=== PATIENT | male | born 1960 | race Two or more races ===

== ENCOUNTER 2023-01-18 10:47 | Inpatient (IN) | payer MEDICAID, SELFPAY ==
[2023-01-18] VITALS (8 sets, daily range): BP systolic 138–172; BP diastolic 86–114; PULSE 105–122; RESP 15–24; TEMP 37–37.4; O2SAT 95–96; BMI 28.1; BMI 28.3
--- NOTE | ~2023-01-18 | CT_ITS ---
EXAMINATION: CT ABDOMEN AND PELVIS WITH CONTRAST CLINICAL INFORMATION: Abdominal pain COMPARISON: None available. TECHNIQUE: Multidetector volumetric images were obtained from the superior aspect of the liver through the pubic symphysis following administration 85 mL of Omnipaque 350 intravenous contrast. Sagittal and coronal reformatted images were obtained on the technologist's workstation. Oral contrast: Yes This CT examination was performed using dose optimization techniques as appropriate, variously including the following: *Automated exposure control *Adjustment of mA and/or kV according to patient size (this includes techniques or standardized protocols for targeted exams where dose is matched to indication/reason for exam; i.e. extremities or head) *Use of iterative reconstruction technique DLP: 488 mGy-cm FINDINGS: LUNG BASES: The visualized lung bases are unremarkable. LIVER, GALLBLADDER, AND BILIARY TREE: The liver is normal in size, shape, and attenuation. No focal hepatic lesion or biliary ductal dilatation is present. The gallbladder is unremarkable with no evidence of radiopaque gallstones, gallbladder wall thickening, or obvious pericholecystic inflammatory changes. PANCREAS: Unremarkable. SPLEEN: Unremarkable. ADRENAL GLANDS: Unremarkable. KIDNEYS AND URETERS: Small 1 to 2 mm punctate right renal stones.. Small right renal cyst. No imaging follow-up recommended. Possible tiny cyst exophytic to the upper pole of the left kidney. BLADDER: Not optimally distended. GASTROINTESTINAL TRACT: Diverticulosis of the colon. Focal short segment wall thickening of the distal transverse colon and stranding of the surrounding fat suggestive of diverticulitis or colitis. Small and large bowel is otherwise unremarkable. The appendix is unremarkable. ABDOMINAL WALL: Small left inguinal hernia containing fat. LYMPH NODES: Normal. VASCULAR: Unremarkable. PELVIC VISCERA: Unremarkable. OSSEOUS STRUCTURES: Degenerative changes of the spine. CT/CT abdomen pelvis w IV con IMPRESSION: Diverticulitis or colitis of the distal left colon. Trace ascites in the pelvis. Small nonobstructing right renal stones. Fleischner guidelines were followed.
--- NOTE | ~2023-01-18 | XR_ITS ---
EXAMINATION: XR CHEST CLINICAL INFORMATION: Chest and abdominal pain COMPARISON: None available. TECHNIQUE: 2 views of the chest were obtained. FINDINGS: The cardiac and mediastinal contours are normal. The lungs are clear. No pleural effusion or pneumothorax. No free air. Old right distal clavicle fracture. Degenerative changes of the spine. XR/XR chest 2V IMPRESSION: No evidence for acute disease in the chest.
--- OUTSIDE RECORDS SUMMARY | 2023-01-18 11:41 | XMS_ITS | Continuity of Care Document ---
Author Name Unknown Organization [facility] Address [address] [place] [id number] Care Team Providers Care Pen Maker Name Role Phone Conner Hoang NP Primary Care Physician Encounter [facility] [id number] Date(s): 02/15/21 - 03/17/21 [facility] [address] [place] [id number] Attending Physician: Home Zavala Admitting Physician: AdmHome virk Referring Physician: Admtr ArHakeem Allergies, Adverse Reactions, Alerts No Known Medication Allergies Medications carvedilol 3.125 mg oral tablet 3.125 mg, 1, tablet, By Mouth, 2 times a day, # 180 tablet, Refills 0, Maintenance, 07/09/18 8:49:07 EDT Start Date: 07/09/18 Status: Ordered Genvoya oral tablet 1 tablet, By Mouth, Daily, with food, # 30 tablet, 0 Refills, Maintenance, 07/09/18 8:49:30 EDT, Tablet Start Date: 07/09/18 Status: Ordered Zoloft 50 mg oral tablet 1 tablet = 50 mg, By Mouth, Daily, # 30 tablet, 0 Refills, Maintenance, 07/09/18 8:48:52 EDT, Tablet Start Date: 07/09/18 Status: Ordered Social History Social History Type Response Smoking Status Current every day sm oker; Tobacco user in household: Yes entered on: 07/09/18 Sex
--- OUTSIDE RECORDS SUMMARY | 2023-01-18 11:41 | XMS_ITS | Continuity of Care Document ---
Author Name Unknown Organization [facility] Address [address] [place] [id number]- Care Team Providers Care Template Checker Name Role Phone Conner Hoang NP Primary Care Physician Encounter [facility] [id number] Date(s): 12/21/20 - 03/17/21 [facility] [address] [place] [id number] Attending Physician: Oliver Albrecht MD Admitting Physician: Oliver Albrecht MD Referring Physician: Bebeto Rodriguez MD Allergies, Adverse Reactions, Alerts No Known Medication [...]
[2023-01-18 11:43] LABS: Basophils Absolute Auto 0.1 X10*3/uL (0.0-0.2); Basophils Percent Auto 0.3 % (0-2); Eosinophils Percent Auto 0.2 % (0-4); Hematocrit 42.3 % (42.0-52.0); Hemoglobin 13.9 g/dl (14.0-18.0); Imm Gran Abs Auto 0.19 X10*3/uL (0.00-0.03); Imm Gran Pct Auto 0.8 % (0.0-0.4); Lymphocytes Absolute Auto 2.5 X10*3/uL (1.2-4.9); Lymphocytes Percent Auto 10.9 % (20-40); MANUAL DIFF FLAG SCAN; Mean Corpuscular HGB Conc 32.9 g/dl (31.0-36.0); Mean Corpuscular Hemoglobin 28.5 pg (27.0-33.0); Mean Corpuscular Volume 86.7 fL (80.0-98.0); Mean Platelet Volume 9.5 fL (9.4-12.4); Monocytes Absolute Auto 2.5 X10*3/uL (0.1-1.2); Monocytes Percent Auto 11.1 % (2-11); Neutrophils Absolute Auto 17.2 x10*3/uL (2.0-8.3); Neutrophils Percent Auto 76.7 % (45-73); Platelet Count 331 X10*3/uL (160-400); Red Blood Count 4.88 X10*6/uL (4.60-5.80); Red Cell Distribution Width 12.4 % (11.0-16.0); SCAN SMEAR FLAG 1; White Blood Count 22.5 X10*3/uL (4.8-10.8)
--- NOTE | 2023-01-18 11:50 | ECG_ITS ---
Test Reason : abdominal pain Blood Pressure : / mmHG Vent. Rate : 105 BPM Atrial Rate : 105 BPM P-R Int : 148 ms QRS Dur : 080 ms QT Int : 330 ms P-R-T Axes : 064 -56 026 degrees QTc Int : 436 ms Sinus tachycardia Left anterior fascicular block Abnormal ECG No previous ECGs available Referred By: Henok Rosen Electronically Signed By:BETI WILKERSON
--- NOTE | 2023-01-18 11:53 | ED.ABDPAIN ---
HPI - Abdominal Pain General Chief Complaint: Abdominal Pain Stated Complaint: abd pain Time Seen by Provider: 01/18/23 11:07 Source: patient Mode of arrival: ambulatory Limitations: language barrier (Polish speaking only, healthcare facility administrator used) History of Present Illness HPI narrative: 62-year-old male who presents emergency department for evaluation of abdominal pain x3 weeks. The pain is gotten worse over the past 4 days, he has not been able to eat or drink over the past 24 hours secondary to his pain. The patient states he has had constant abdominal pain which waxes and wanes in intensity. He states the pain is as high as 10/10 at its worst. At the time of evaluation the pain was 5/10. He states that the pain is a twisting like pain any points to his epigastric area and left abdomen when asked to localize the pain. He states that he has had subjective fever and chills which started last night. He states he has had sore throat, cough productive of white sputum, shortness of breath and dyspnea on exertion. Patient has had intermittent nausea with vomiting this morning. He states his last bowel movement was this morning. He does feel distended. He has noted occasional black stools. He denied bloody stools. He has had frequency and dysuria. Patient had an umbilical hernia repair 10 years prior. Patient states that he drinks alcohol occasionally and smokes marijuana occasionally. Related Data Allergies Allergy/AdvReac Type Severity Reaction Status Date / Time No Known Allergies Allergy Verified 01/18/23 11:49 Review of Systems Review of Systems Yes all other systems are reviewed and are negative [facility] Past Medical History [facility] Narrative: Past medical history: Hypertension, asthma, depression, arthritis. Past surgical history: Umbilical hernia repair 10 years prior. Social history: He denies tobacco use. He drinks alcohol occasionally. He smokes marijuana occasionally. Social History Social History Alcohol intake: current Alcohol intake frequency: holidays/special occasions only Smoked in Last 30 Days: No Use of substances other than those prescribed or required for medical reasons: Yes Substance Use Type: Marijuana Advance Directives: No Physical Exam ED Vital Signs: Vital Signs - 24 hr 01/18/23 10:58 01/18/23 11:10 01/18/23 14:19 Temperature 99.1 F Pulse Rate 120 H 122 H 105 H Respiratory Rate 16 24 H Blood Pressure 153/114 H 138/86 Pulse Oximetry 96 96 Oxygen Delivery Method Room Air Room Air 01/18/23 14:29 Temperature Pulse Rate Respiratory Rate 18 Blood Pressure Pulse Oximetry Oxygen Delivery Method BMI result Body Mass Index 28.1 Const Other: Awake, alert, male patient, pleasant, cooperative does not appear to be in distress [facility] Head: Yes normal to inspection, Yes normocephalic and Yes atraumatic Ears: external ears normal General nose exam: Normal external nose present Face and sinus: Yes normal facial exam Mouth: Normal oral and palatal mucosa present Throat: Yes posterior oropharynx normal Eyes General: appearance normal, both eyes and all related structures Pupils: Equal, round and reactive pupils present Neck Neck: Yes normal visual inspection, Yes no lymphadenopathy, Yes trachea midline and Yes supple Chest Chest palpation & inspection: normal inspection of the chest and normal palpation of entire chest wall Resp Effort & Inspection: normal respiratory effort and able to speak in complete sentences Auscultation: clear to auscultation bilaterally Cardio Rate: regular rate Rhythm: regular rhythm Heart sounds: S1 normal heart sound present, S2 normal heart sound present and no murmurs GI Inspection: Yes normal to inspection Palpation (GI): Soft to palpation, Tenderness to palpation present (GI) in the epigastrum (Moderate), in the LLQ (Moderate) and in the LUQ (My) and no guarding Auscultation: normal bowel sounds General: Yes no CVA tenderness Back/Spine/Pelvis Back: no CVA tenderness Skin General skin exam: no rashes or lesions noted Neuro Cranial nerves: Yes CN's II-XII intact bilaterally and Yes Equal, round and reactive pupils present Cognition (Neuro): normal cognition Motor exam (neuro): 5/5 motor strength present throughout Extrem General: Yes normal to inspection Psych Appearance: grossly normal Speech and movement: Normal speech and movement present Affect: normal affect Attitude: cooperative Thought process: Normal thought process present Thought content: Normal thought content present Medical Decision Making Medical Decision Making MDM Narrative: 8o-year-old male who presents emergency department for evaluation of abdominal pain x3 weeks with pain getting worse over the past 4 days. Patient has not been able to eat or drink for the past 24 hours secondary to his pain.. He states the pain is been constant but waxes and wanes in intensity. He describes the pain is a twisting sensation. He points to his epigastric and left side of his abdomen when asked to localize the pain. States the pain is a twisting pain does feel distended. Patient had a normal bowel movement this morning but states that he has noted black stools. He denied bloody stools. He has also had subjective fever, chills. He has had a cough productive of white sputum. He has had shortness of breath dyspnea on exertion, nausea vomiting. He has also had frequency and dysuria. Vital signs revealed an elevated blood pressure of 153/114 elevated pulse of 120. Patient's abdominal exam did reveal epigastric and left-sided abdominal tenderness. I ordered a laboratory evaluation to include CBC, basic metabolic panel, liver panel, lipase, urinalysis. Chest x-ray x2, CT scan abdomen pelvis with IV contrast and EKG will also be obtained. Patient's pain was treated with Toradol 15 mg IV and Zofran 4 mg IV. Is also ordered to get normal saline IV x1 L. 1417: My interpretation patient's laboratory data as follows: Elevated WBC 7[address]. CT scan of the patient's abdomen pelvis IV contrast is consistent with a diverticulitis/colitis of the distal left colon. Patient's pain did improve with the above treatment however he requested more pain medications. I ordered Zosyn 4.5 g IV to treat his diverticulitis/colitis. Patient was also ordered to get morphine 4 mg IV for his pain and a 2 L of normal saline IV was ordered. Given the fact that he is not able to eat or drink as having significant pain, I believe that the patient needs to be admitted for IV antibiotics and pain medications until improves enough to be started on oral medications. Patient was discussed over tiger text with the covering hospitalist, Dr. Dylan Dominguez. Differential Diagnosis The differential diagnosis includes was not limited to gastritis, diverticulitis, GI bleed, inflammatory bowel disease, partial bowel obstruction, pancreatitis, urinary tract infection, renal stone Consult Healthcare Provider Management of the patient was discussed with: Hospitalist Lab Data [facility] Lab Attestation statement: I reviewed the patient's lab results. (Please see MDM) 01/18/23 11:37 01/18/23 11:37 Labs: Lab Results 01/18/23 01/18/23 01/18/23 Range/Units 11:37 11:37 14:22 WBC 22.5 H (4.8-10.8) X10*3/uL RBC 4.88 (4.60-5.80) X10*6/uL Hgb 13.9 L (14.0-18.0) g/dl Hct 42.3 (42.0-52.0) % MCV 86.7 (80.0-98.0) fL MCH 28.5 (27.0-33.0) pg MCHC 32.9 (31.0-36.0) g/dl RDW 12.4 (11.0-16.0) % Plt Count 331 (160-400) X10*3/uL MPV 9.5 (9.4-12.4) fL Immature Gran % (Auto) 0.8 H (0.0-0.4) % Neut % (Auto) 76.7 H (45-73) % Lymph % (Auto) 10.9 L (20-40) % [place] % (Auto) 11.1 H (2-11) % Eos % (Auto) 0.2 (0-4) % Baso % (Auto) 0.3 (0-2) % Lymph # (Auto) 2.5 (1.2-4.9) X10*3/uL [place] # (Auto) 2.5 H (0.1-1.2) X10*3/uL Eos # (Auto) 0.0 (0.0-0.4) X10*3/uL Baso # (Auto) 0.1 (0.0-0.2) X10*3/uL Abs Immat Gran (auto) 0.19 H (0.00-0.03) X10*3/uL Absolute Neuts (auto) 17.2 H (2.0-8.3) x10*3/uL Absolute Nucleated RBC 0.000 (0.0-0.012) X10*3/uL Nucleated RBC % (auto) 0.0 (0.0-0.2) /100WBC Smear Tech's Comments VERIFIED Sodium 139 (135-145) mmol/L Potassium 4.3 (3.3-5.1) mmol/L Chloride 106 (96-108) mmol/L Carbon Dioxide 25 (22-29) mmol/L Anion Gap 12 (12-20) BUN 8 L (9-16) mg/dL Creatinine 0.96 (0.5-1.4) mg/dL Estim Creat Clear Calc 83.7 Estimated GFR > 60 Random Glucose 102 (60-115) mg/dL Calcium 9.2 (8.4-10.2) mg/dL Total Bilirubin 0.9 (0.0-1.0) mg/dL Direct Bilirubin 0.3 (0.0-0.5) mg/dL AST 26 (5-37) U/L ALT 17 (0-40) U/L Alkaline Phosphatase 90 (39-117) U/L Total Protein 8.1 H (6.5-8.0) g/dL Albumin 4.2 (3.5-5.0) g/dL Lipase 10 (8-78) U/L Urine Color Yellow Urine Appearance Clear Urine pH 8.5 (5.0-9.0) Ur Specific [place] >= 1.030 H (1.005-1.025) Urine Protein 30 (1+) H (Neg-Trace) mg/dL Urine Glucose (UA) Negative (Negative) mg/dL Urine Ketones Negative (Negative) mg/dL Urine Blood Negative (Negative) Urine Nitrite Negative (Negative) Ur Leukocyte Esterase Negative (Negative) Urine RBC 0-2 (0-2) /HPF Urine WBC 0-5 (0-5) /HPF Ur Squamous Epith Cells 0-2 (0-2) /HPF Urine Bacteria None Seen (None Seen) Hyaline Casts 0-2 (0-2) /LPF Radiology Impression Discussion of test interpretation with radiology: I have reviewed the radiologist's reading. Radiologist Impression: EXAMINATION: CT ABDOMEN AND PELVIS WITH CONTRAST CLINICAL INFORMATION: Abdominal pain COMPARISON: None available. FINDINGS: LUNG BASES: The visualized lung bases are unremarkable. LIVER, GALLBLADDER, AND BILIARY TREE: The liver is normal in size, shape, and attenuation. No focal hepatic lesion or biliary ductal dilatation is present. The gallbladder is unremarkable with no evidence of radiopaque gallstones, gallbladder wall thickening, or obvious pericholecystic inflammatory changes. PANCREAS: Unremarkable. SPLEEN: Unremarkable. ADRENAL GLANDS: Unremarkable. KIDNEYS AND URETERS: Small 1 to 2 mm punctate right renal stones.. Small right renal cyst. No imaging follow-up recommended. Possible tiny cyst exophytic to the upper pole of the left kidney. BLADDER: Not optimally distended. GASTROINTESTINAL TRACT: Diverticulosis of the colon. Focal short segment wall thickening of the distal transverse colon and stranding of the surrounding fat suggestive of diverticulitis or colitis. Small and large bowel is otherwise unremarkable. The appendix is unremarkable. ABDOMINAL WALL: Small left inguinal hernia containing fat. LYMPH NODES: Normal. VASCULAR: Unremarkable. PELVIC VISCERA: Unremarkable. OSSEOUS STRUCTURES: Degenerative changes of the spine. CT/CT abdomen pelvis w IV con IMPRESSION: Diverticulitis or colitis of the distal left colon. Trace ascites in the pelvis. Small nonobstructing right renal stones. Fleischner guidelines were followed. Dictated By:Latoya Gonzalez MDSigned By:<Electronically signed by Latoya Gonzalez MD in [place]>01/18/23 1343 Medications Administered Generic Name Dose Route Start Last Admin Trade Name Freq PRN Reason Stop Dose Admin Sodium Chloride 1,000 mls @ 999 mls/hr 01/18/23 14:11 01/18/23 14:27 Ns IV 01/18/23 15:11 999 mls/hr .Q1H1M STA Administration Discontinued Medications Generic Name Dose Route Start Last Admin Trade Name Freq PRN Reason Stop Dose Admin Sodium Chloride 1,000 mls @ 999 mls/hr 01/18/23 12:11 01/18/23 14:33 Ns IV 01/18/23 13:11 Infused .Q1H1M STA Infusion Piperacillin Sod/Tazobactam 100 mls @ 200 mls/hr 01/18/23 14:11 01/18/23 14:30 Sod 4.5 gm/ Sodium Chloride IV 01/18/23 14:40 200 mls/hr ONCE ONE Administration Iohexol 85 ml 01/18/23 12:39 01/18/23 12:40 Iohexol 350 Mg/Ml 100 Ml Infus..Btl IV 01/18/23 12:40 85 ml ONCE ONE Administration Ketorolac Tromethamine 15 mg 01/18/23 11:49 01/18/23 12:00 Ketorolac Tromethamine 15 Mg/Ml Vial IVPUSH 01/18/23 11:50 15 mg ONCE STA Administration Morphine Sulfate 4 mg 01/18/23 14:11 01/18/23 14:29 Morphine Sulfate 4 Mg/Ml Cartridge IVPUSH 01/18/23 14:12 4 mg ONCE ONE Administration Protocol Ondansetron HCl 4 mg 01/18/23 11:49 01/18/23 12:00 Ondansetron Hcl 4 Mg/2 Ml Vial IVPUSH 01/18/23 11:50 4 mg ONCE ONE Administration Discharge Plan Discharge Clinical Impression: Diverticulitis, Colitis, Leukocytosis Patient Disposition: Admitted As Inpatient
[2023-01-18] MEDS: Ketorolac Tromethamine 15 MG/ML VIAL IVPUSH (12:00)
[2023-01-18] MEDS: ondansetron HCL 4 MG/2 ML VIAL IVPUSH (12:00)
[2023-01-18 12:01] LABS: Alanine Aminotransferase 17 U/L (0-40); Albumin Level 4.2 g/dL (3.5-5.0); Alkaline Phosphatase 90 U/L (39-117); Anion Gap 12 (12-20); Aspartate Amino Transferase 26 U/L (5-37); Bilirubin Direct 0.3 mg/dL (0.0-0.5); Bilirubin Total 0.9 mg/dL (0.0-1.0); Blood Urea Nitrogen 8 mg/dL (9-16); Calcium 9.2 mg/dL (8.4-10.2); Carbon Dioxide 25 mmol/L (22-29); Chloride 106 mmol/L (96-108); Creatinine Clr Calc Pharmacy 83.7; Estimated Glomerular Filt Rate > 60; Glucose Random 102 mg/dL (60-115); Lipase 10 U/L (8-78); Potassium 4.3 mmol/L (3.3-5.1); Sodium 139 mmol/L (135-145); Total Protein 8.1 g/dL (6.5-8.0)
[2023-01-18 12:08] LABS: SLIDE REVIEW VERIFIED
--- NOTE | 2023-01-18 12:08 | PC.NURSE ---
Pt on stretcher, airway open and patent, no obvious signs of distress, no difficulty breathing. A&ox4, skin slightly pale for ethnicity, warm, and dry. Lung sounds clr left, rhonchi noted on right side. Heart sounds normal. Bowel sounds present all botello. No edema noted. Pt complaining of abd pain on left side that goes across lower abdomen to right side and upper middle.
[2023-01-18] MEDS: 0.9 % Sodium Chloride 1,000 ML 999 ML IV ×2 (12:17→14:27)
[2023-01-18] MEDS: iohexoL 350 MG/ML 100 ML INFUS..BTL 85 ML IV (12:40)
[2023-01-18 14:28] LABS: Appearance Urine Clear; Color Urine Yellow; Glucose Urine UA Negative (Negative); Leukocyte Esterase Urine Negative (Negative); Nitrite Urine Negative (Negative); PH 8.5 (5.0-9.0); Specific Gravity - Urine >= 1.030 (1.005-1.025); UMIC TRIGGER UACC YES; Urine Blood Negative (Negative); Urine Ketones Negative (Negative); Urine Protein 30 (1+) mg/dL (Neg-Trace)
[2023-01-18] MEDS: Morphine Sulfate 4 MG/ML CARTRIDGE IVPUSH (14:29)
[2023-01-18] MEDS: Piperacillin Sodium/Tazobactam 4.5 GM in 0.9 % Sodium Chloride 100 ML IV (14:30)
--- NOTE | 2023-01-18 14:32 | PC.NURSE ---
Pt resting comfortably, stating abdominal pain 5/10. Heart rate improved, 103 bpm.
[2023-01-18 14:33] LABS: Bacteria Urine None Seen (None Seen); Hyaline Casts Urine 0-2 /LPF (0-2); RBC Urine 0-2 /HPF (0-2); Squamous Epithelial Cell Urine 0-2 /HPF (0-2); WBC Urine 0-5 /HPF (0-5)
--- NOTE | 2023-01-18 15:49 | P.HPHOSP_ITS ---
History of Present Illness Date of Service: 01/18/23 Chief Complaint: Abdominal pain Pt is a 62-year-old male with a PMH significant for?HTN, arthritis, asthma, HIV, and depression who presents to the ED with?three weeks of abdominal pain, worse the past few days. Pain is mostly on the left side and has been mostly constant. Pt has also been experiencing fever, chills, and anorexia during this time, worse since yesterday. Denies nausea, vomiting, or diarrhea. No constipation. Last bowel movement was this morning, was slightly softer than normal. Pt has not seen anyone or taken anything for his symptoms, and notes he has resisted coming to the ED because he does not want to miss work. He presents today because pain was unbearable last night. Pain has been a 10/10 at its worst. Chronic cough, occasionally productive of white sputum. Of note, patient says that approximately 1 year he had similar symptoms and was given antibiotics for an abdominal infection. In the ED patient was afebrile but tachycardic up to 122 and tachypneic up to 24. Labs were significant for leukocytosis of 22.5, otherwise unremarkable. CXR showed no cardiopulmonary disease. CT?of the abdomen and pelvis showed diverticulitis or colitis of the distal left colon with trace ascites in the pelvis and small nonobstructing right renal stones. EKG demonstrated sinus tachycardia with no evidence of ST elevations or depressions. Pt was treated with a ondansetron, ketorolac, IVF, morphine, and Zosyn. Pt will be admitted to the hospital for treatment of acute diverticulitis with IV antibiotics and fluids. Review of Systems Review of Systems: Left-sided abdominal pain Fever, chills Anorexia Chronic cough No nausea, vomiting, diarrhea Denies chest pain/pressure, palpitations Yes all other systems are reviewed and are negative PMFSH Social History Alcohol intake: current Alcohol intake frequency: holidays/special occasions only Smoked in Last 30 Days: No Use of substances other than those prescribed or required for medical reasons: Yes Substance Use Type: Marijuana Advance Directives: No Meds Allergies Allergy/AdvReac Type Severity Reaction Status Date / Time No Known Allergies Allergy Verified 01/18/23 11:49 Active Medications: Current Medications Pharmacy Consult (Consult Rx Perform Med Rec) 1 each MISCELLANE ONCE PRN PRN Reason: Consult order Home Medications Medication Instructions Recorded Confirmed Last Taken Type albuterol sulfate 90 mcg/actuation 2 puff inhalation Q4H PRN wheezing 01/18/23 01/18/23 01/17/23 History aerosol inhaler (Ventolin HFA) atorvastatin 20 mg tablet 20 mg PO DAILY 01/18/23 01/18/23 01/17/23 History bictegravir 50 mg-emtricitabine 1 tab PO DAILY 01/18/23 01/18/23 01/17/23 History 200 mg-tenofovir alafenam 25 mg tablet (Biktarvy) carvedilol 3.125 mg tablet 3.125 mg PO BID 01/18/23 01/18/23 01/17/23 History umeclidinium 62.5 mcg/actuation 1 inh inhalation DAILY 01/18/23 01/18/23 01/17/23 History blister powder for inhalation (Incruse Ellipta) Physical Exam Vital Signs and Narrative: Vital Signs: Last Vital Signs Temp 99.1 F 01/18/23 10:58 Pulse 105 H 01/18/23 14:19 Resp 18 01/18/23 14:29 BP 138/86 01/18/23 14:19 Pulse Ox 96 01/18/23 14:19 O2 Del Method Room Air 01/18/23 14:19 BMI result Body Mass Index 28.1 Constitutional: Alert, in no acute distress. Mental Status: Oriented to person, place and time. Eyes: Pupils are equal, round, and reactive to light. Ear, Nose, and Throat: Oropharynx clear, mucous membranes moist. Ears and nose without deformities. Trachea midline. Respiratory: Expiratory wheezing bilaterally. Cardiovascular: S1, S2 regular. No murmurs, rubs, or gallops. Gastrointestinal: Abdomen soft, non-distended, with epigastric and left-sided tenderness. No rebound tenderness or guarding. Normal bowel sounds. Neurologic: Cranial nerves II-XII are grossly intact bilaterally. No focal neurological deficits. Moves all extremities spontaneously. Skin: No rashes or lesions noted. Extremities: No edema. Psychiatric: Normal mood and affect. Results Labs 01/18/23 11:37 01/18/23 11:37 Labs: Laboratory Results - last 24 hr 01/18/23 01/18/23 01/18/23 11:37 11:37 14:22 MCV 86.7 MCH 28.5 MCHC 32.9 RDW 12.4 Plt Count 331 MPV 9.5 Immature Gran % (Auto) 0.8 H Neut % (Auto) 76.7 H Lymph % (Auto) 10.9 L [place] % (Auto) 11.1 H Eos % (Auto) 0.2 Baso % (Auto) 0.3 Lymph # (Auto) 2.5 [place] # (Auto) 2.5 H Eos # (Auto) 0.0 Baso # (Auto) 0.1 Abs Immat Gran (auto) 0.19 H Absolute Neuts (auto) 17.2 H Absolute Nucleated RBC 0.000 Nucleated RBC % (auto) 0.0 Smear Tech's Comments VERIFIED Anion Gap 12 Estim Creat Clear Calc 83.7 Estimated GFR > 60 Random Glucose 102 Calcium 9.2 Total Bilirubin 0.9 Direct Bilirubin 0.3 AST 26 ALT 17 Alkaline Phosphatase 90 Total Protein 8.1 H Albumin 4.2 Lipase 10 Urine Color Yellow Urine Appearance Clear Urine pH 8.5 Ur Specific [place] >= 1.030 H Urine Protein 30 (1+) H Urine Glucose (UA) Negative Urine Ketones Negative Urine Blood Negative Urine Nitrite Negative Ur Leukocyte Esterase Negative Urine RBC 0-2 Urine WBC 0-5 Ur Squamous Epith Cells 0-2 Urine Bacteria None Seen Hyaline Casts 0-2 Imaging Radiologist's Impressions: Impressions Chest X-Ray 01/18/23 12:50 IMPRESSION: No evidence for acute disease in the chest. Abdomen/Pelvis CT 01/18/23 12:52 IMPRESSION: Diverticulitis or colitis of the distal left colon. Trace ascites in the pelvis. Small nonobstructing right renal stones. Fleischner guidelines were followed. Assessment and Plan (1) Diverticulitis: Status: Acute Plan Pt is a 62-year-old male with a PMH significant for?HTN, arthritis, asthma, HIV, and depression who presents to the ED with?three weeks of abdominal pain, worse the past few days. Pt will be admitted to the hospital for treatment of acute diverticulitis with IV antibiotics and fluids. Acute diverticulitis CT?of the abdomen and pelvis showed diverticulitis or colitis of the distal left colon? IV abx: ceftriaxone, metronidazole IVF: Normal saline Analgesics for pain management Bowel rest: pt will be made NPO for now, advance diet tomorrow as tolerated Follow BMP Pt's tachycardia and tachypnia likely secondary to pain, not sepsis Asthma Pt with wheezing on exam, improved after albuterol Does not seem in acute exacerbation Continue home inhalers HTN Continue carvedilol HLD Continue statin HIV Continue Biktarvy Full Code Attending:?Dr. Guzman DVT Prophylaxis: Lovenox Pt will require a hospitalization of at least two nights for treatment of?acute diverticulitis with IV abx and fluids. Time Spent With Patient Time: Total time managing care of this patient today ____ minutes. Quality Stroke Does the patient have a stroke diagnosis?: No VTE Prior VTE?: No VTE Risk Level:: Medical - moderate - high VTE Device Contraindication: Treatment Not Indicated VTE Drug Contraindication: N/A - Med Ordered
--- NOTE | 2023-01-18 17:37 | PHA.MEDREC ---
Pharmacy Consult ? Medication Reconciliation Pharmacy has completed the medication reconciliation. Spoke to pt with assistance of process developer. He didn't know the names of the medications he's on but when I read him the names from claim history he was able to verify that he still takes them.
[2023-01-18] MEDS: Enoxaparin Sodium 40 MG/0.4 ML SYRINGE SUBCUT (17:54)
[2023-01-18] MEDS: metroNIDAZOLE 500 MG TABLET PO (17:54)
[2023-01-18] MEDS: cefTRIAXone sodium 1 GM in 0.9 % Sodium Chloride 50 ML IV (17:55)
[2023-01-18] MEDS: 0.9 % Sodium Chloride 1,000 ML 100 ML IVCONT (18:00)
--- NOTE | 2023-01-18 18:09 | PC.NURSE ---
Pt complaining of worsening abdominal pain rated 5/10 that started up again a few minutes ago.
[2023-01-18] MEDS: carvediloL 3.125 MG TABLET PO (20:40)
[2023-01-19] MEDS: metroNIDAZOLE 500 MG TABLET PO ×3 (00:05→17:22)
[2023-01-19 04:00] VITALS: BP 163/99; PULSE 92; RESP 18; TEMP 37.1; O2SAT 97
[2023-01-19] MEDS: 0.9 % Sodium Chloride 1,000 ML 100 ML IVCONT (05:29)
--- NOTE | 2023-01-19 05:39 | PC.NURSE ---
Pt came from the ED at 2100, alert and oriented, spanish medical interpreter called in, still with mild left sided abdl pain, oriented to the unit and plan of care, safety measures instructed, NPO maintianed, slept fairly
[2023-01-19 07:07] LABS: Hematocrit 38.2 % (42.0-52.0); Hemoglobin 12.4 g/dl (14.0-18.0); Mean Corpuscular HGB Conc 32.5 g/dl (31.0-36.0); Mean Corpuscular Hemoglobin 28.3 pg (27.0-33.0); Mean Corpuscular Volume 87.2 fL (80.0-98.0); Mean Platelet Volume 9.4 fL (9.4-12.4); Platelet Count 289 X10*3/uL (160-400); Red Blood Count 4.38 X10*6/uL (4.60-5.80); Red Cell Distribution Width 12.3 % (11.0-16.0); White Blood Count 15.9 X10*3/uL (4.8-10.8)
[2023-01-19 07:15] VITALS: BP 170/90; PULSE 89; RESP 16; TEMP 35.9; O2SAT 97
[2023-01-19 07:55] LABS: Anion Gap 12 (12-20); Blood Urea Nitrogen 7 mg/dL (9-16); Calcium 8.3 mg/dL (8.4-10.2); Carbon Dioxide 25 mmol/L (22-29); Chloride 107 mmol/L (96-108); Creatinine Clr Calc Pharmacy 95.8; Estimated Glomerular Filt Rate > 60; Glucose Random 84 mg/dL (60-115); Potassium 4.6 mmol/L (3.3-5.1); Sodium 139 mmol/L (135-145)
[2023-01-19] MEDS: carvediloL 3.125 MG TABLET 6.25 MG PO ×2 (08:48→19:31)
[2023-01-19] MEDS: Atorvastatin Calcium 20 MG TABLET PO (08:48)
[2023-01-19] MEDS: Bictegrav/Emtricit/Tenofov Ala TABLET 1 TAB PO (08:48)
[2023-01-19 11:12] LABS: Glucose, Whole Blood 80 mg/dL (60-115)
--- NOTE | 2023-01-19 11:14 | MHC.CM.PN ---
Pt independent, SSO, was admitted for abdominal pain/acute diverticulitis. D/C plan to return home, self care when medically cleared. Pts son to transport. HCP offered and filled out today. PCP: NAVI Hernandez Vax: x [phone]
--- NOTE | 2023-01-19 14:41 | HO.PM.IMPN ---
Subjective Subjective Date of Service: 01/19/23 Interval History: Abdominal pain Review of Systems Patient says abdominal pain somewhat better than yesterday still feel nauseated still could not tolerate the diet Encouraged him to at least try clear liquids today No fevers Says in tachycardia somewhat improving Physical Exam Vital Signs: Vital Signs: Last Vital Signs Temp 96.6 F L 01/19/23 07:15 Pulse 89 01/19/23 07:15 Resp 16 01/19/23 07:15 BP 170/90 H 01/19/23 07:15 Pulse Ox 97 01/19/23 07:15 O2 Del Method Room Air 01/19/23 07:15 BMI result Body Mass Index 28.3 Appearance: Alert.? Oriented X3. cvs: rrr, [id number] , no murmur res: clear to auscultation ,no rhonchii or wheezing abd: no rebound or guarding ,nt improvi, left sided abd tenderness , bs present. ext pulses present , no cyanosis . neuro: axo3 , nonfocal. Objective Data Active Medications Acetaminophen (Acetaminophen 325 Mg Tablet) 650 mg PO Q6H PRN PRN Reason: Pain, Mild (Pain Scale 1-3) Albuterol Sulfate (Albuterol Sulfate 90 Mcg 8 Gm Inhaler) 2 puff INHALE Q4H PRN PRN Reason: wheezing Atorvastatin Calcium (Atorvastatin Calcium 20 Mg Tablet) 20 mg PO DAILY [facility] Last Admin: 01/19/23 08:48 Dose: 20 mg Documented By: EVELINE Bictegravir/Emtricitabine/Tenofovir (Bictegrav/Emtricit/Tenofov Ala Tablet) 1 tab PO DAILY [facility] Last Admin: 01/19/23 08:48 Dose: 1 tab Documented By: EVELINE Carvedilol (Carvedilol 3.125 Mg Tablet) 6.25 mg PO BID [facility]; Protocol Last Admin: 01/19/23 08:48 Dose: 6.25 mg Documented By: EVELINE Docusate Sodium (Docusate Sodium 100 Mg Capsule) 100 mg PO DAILY PRN PRN Reason: Constipation Enoxaparin Sodium (Enoxaparin Sodium 40 Mg/0.4 Ml Syringe) 40 mg SUBCUT Q24H [facility] Last Admin: 01/18/23 17:54 Dose: 40 mg Documented By: SHELBIE Ceftriaxone Sodium 1 gm/ (Sodium Chloride) 50 mls @ 100 mls/hr IV Q24H [facility] Last Infusion: 01/18/23 20:56 Dose: 0 mls/hr Documented By: KHADRA Metronidazole (Metronidazole 500 Mg Tablet) 500 mg PO Q8H [facility] Last Admin: 01/19/23 08:48 Dose: 500 mg Documented By: EVELINE Morphine Sulfate (Morphine Sulfate 4 Mg/Ml Cartridge) 4 mg IVPUSH Q4H PRN; Protocol PRN Reason: Pain, Severe (Pain Scale 7-10) Non-Formulary Medication (Umeclidinium [Incruse Ellipta]) 1 inhalation INHALE DAILY [facility] Ondansetron HCl (Ondansetron Hcl 4 Mg/2 Ml Vial) 4 mg IVPUSH Q8H PRN PRN Reason: Nausea and Vomiting Pharmacy Consult (Consult Rx Perform Med Rec) 1 each MISCELLANE ONCE PRN PRN Reason: Consult order Sodium Chloride (0.9 % Sodium Chloride Flush 3 Ml Syringe) 3 ml IVFLUSH QSHIFT [facility] Last Admin: 01/19/23 08:42 Dose: Not Given Documented By: EVELINE Non-Admin Reason: IV Running Labs 01/19/23 06:33 01/19/23 06:33 Labs: Laboratory Results - last 24 hr 01/19/23 01/19/23 01/19/23 06:33 06:33 11:04 MCV 87.2 MCH 28.3 MCHC 32.5 RDW 12.3 Plt Count 289 MPV 9.4 Absolute Nucleated RBC 0.000 Nucleated RBC % (auto) 0.0 Anion Gap 12 Estim Creat Clear Calc 95.8 Estimated GFR > 60 POC Glucose 80 Random Glucose 84 Calcium 8.3 L D Microbiology Microbiology Results: Microbiology 01/18/23 12:23 Blood Culture - Preliminary Blood - Venous No growth after 24 hours. 01/18/23 12:03 Blood Culture - Preliminary Blood - Venous No growth after 24 hours. Assessment and Plan (1) Diverticulitis: Status: Acute (2) Colitis: Status: Acute (3) Leukocytosis: Status: Acute Plan ?62-year-old male with a PMH significant for?HTN, arthritis, asthma, HIV, and depression who presents to the ED with?three weeks of abdominal pain, worse the past few days. Pt will be admitted to the hospital for treatment of acute diverticulitis with IV antibiotics and fluids. Acute diverticulitis leucocytosis improving, blood cultures pending CT?of the abdomen and pelvis showed diverticulitis or colitis of the distal left colon? abd pain seems similar but somewhat improving continue ceftriaxone, metronidazole,IVF,Analgesics for pain management,clear liquids Follow BMP Asthma Pt with wheezing on exam, improved after albuterol Does not seem in acute exacerbation Continue home inhalers HTN Continue carvedilol HLD Continue statin HIV Continue Biktarvy Full Code inpatient need :acute diverticulitis with IV abx and fluids, pain management , unable to tolerate diet yet. Time Spent With Patient Time: Total time managing care of this patient today ____ minutes. Quality Stroke Does the patient have a stroke diagnosis?: No VTE Prior VTE?: No VTE Risk Level:: Medical - moderate - high VTE Device Contraindication: Treatment Not Indicated VTE Drug Contraindication: N/A - Med Ordered
[2023-01-19 15:22] VITALS: BP 161/99; PULSE 98; RESP 18; TEMP 37; O2SAT 98
[2023-01-19] MEDS: cefTRIAXone sodium 1 GM in 0.9 % Sodium Chloride 50 ML IV (17:21)
[2023-01-19] MEDS: Enoxaparin Sodium 40 MG/0.4 ML SYRINGE SUBCUT (17:22)
[2023-01-19 19:10] VITALS: BP 167/94; PULSE 87; RESP 18; TEMP 37.1; O2SAT 98
[2023-01-19 23:06] VITALS: BP 161/95; PULSE 83; RESP 18; TEMP 37.1; O2SAT 96
[2023-01-20] MEDS: metroNIDAZOLE 500 MG TABLET PO ×3 (01:28→12:42)
[2023-01-20 03:58] VITALS: BP 164/94; PULSE 88; RESP 20; TEMP 37.1; O2SAT 96
[2023-01-20 07:20] VITALS: BP 182/90; PULSE 80; RESP 20; TEMP 36.7; O2SAT 97
[2023-01-20] MEDS: 0.9 % Sodium Chloride Flush 3 ML SYRINGE IVFLUSH (08:41)
[2023-01-20] MEDS: amLODIPine Besylate 5 MG TABLET PO (08:41)
[2023-01-20] MEDS: Atorvastatin Calcium 20 MG TABLET PO (08:41)
[2023-01-20] MEDS: carvediloL 3.125 MG TABLET 6.25 MG PO (08:41)
[2023-01-20] MEDS: Bictegrav/Emtricit/Tenofov Ala TABLET 1 TAB PO (08:41)
--- NOTE | 2023-01-20 10:54 | MHC.CM.PN ---
Pt medically cleared for D/C home today, self care. Pts son to transport pt home.
--- NOTE | 2023-01-20 12:14 | P.CDIM_ITS ---
PROVIDER RESPONSE TEXT: To clarify, the appropriate diagnosis supported by the clinical indicators: Mild intermittent: mild intermittent asthma QUERY TEXT: PHYSICIAN'S DOCUMENTATION REQUEST Date of Query: 01/20/2023 10:12 AM EDT Patient Name: Robby Mayberry Admit Date: 01/18/2023 Dear Dylan Dominguez, A review of the medical record indicates additional documentation may be needed. Please review below and update the documentation accordingly. The diagnosis of asthma was documented in the record on 01/19/23. Additional clinical indicators from the record include: Asthma Pt with wheezing on exam, improved after albuterol Does not seem in acute exacerbation Continue home inhalers Based on the above, please clarify in the Progress Notes further specificity regarding the type and a cuity of the asthma: Mild intermittent Please specify if with or without acute exacerbation or status asthmaticus Mild persistent Please specify if with or without acute exacerbation or status asthmaticus Moderate persistent Please specify if with or without acute exacerbation or status asthmaticus Severe persistent Please specify if with or without acute exacerbation or status asthmaticus Exercise induced Please specify if with or without acute exacerbation or status asthmaticus Chronic obstructive asthma and indicate if with acute lower respiratory infection Please specify if with or without acute exacerbation or status asthmaticus Asthma with underlying COPD and indicate if with acute lower respiratory infection Please specify if with or without acute exacerbation or status asthmaticus Other (explain) Clinically unable to determine (explain) Thank you, Michelle De Paz RN Use of terms such as suspected, likely, concern for, or probable (associated with a specific diagnosi s that is being evaluated, monitored, or treated as if it exists) are acceptable and can be coded in the inpatient se tting, when documented at the time of discharge. Please use your independent medical judgment in providing your response. THIS QUERY IS PART OF THE PERMANENT MEDICAL RECORD
--- NOTE | 2023-01-20 12:18 | PM.DS ---
DS: Providers Provider Date of Service: 01/20/23 Date of admission: 01/18/23 16:58 Date of discharge: 01/20/23 Primary care physician: Unknown Physician DS: Diagnosis Discharge Diagnosis (1) Diverticulitis: Status: Acute (2) Colitis: Status: Acute (3) Leukocytosis: Status: Acute DS: Summary Hospital Course Hospital Course: 62-year-old male with a PMH significant for?HTN, arthritis, asthma, HIV, and depression who presents to the ED with?three weeks of abdominal pain, worse the past few days.? Pain is mostly on the left side and has been mostly constant. Pt has also been experiencing fever, chills, and anorexia during this time, worse since yesterday. Denies nausea, vomiting, or diarrhea. No constipation. Last bowel movement was this morning, was slightly softer than normal. Pt has not seen anyone or taken anything for his symptoms, and notes he has resisted coming to the ED because he does not want to miss work.? He presents today because pain was unbearable last night. Pain has been a 10/10 at its worst. Chronic cough, occasionally productive of white sputum. Of note, patient says that approximately 1 year he had similar symptoms and was given antibiotics for an abdominal infection. In the ED patient was afebrile but tachycardic up to 122 and tachypneic up to 24. Labs were significant for leukocytosis of 22.5, otherwise unremarkable. CXR showed no cardiopulmonary disease. CT?of the abdomen and pelvis showed diverticulitis or colitis of the distal left colon with trace ascites in the pelvis and small nonobstructing right renal stones. EKG demonstrated sinus tachycardia with no evidence of ST elevations or depressions. Pt was treated with a ondansetron, ketorolac, IVF, morphine, and Zosyn. Pt will be admitted to the hospital for treatment of acute diverticulitis with IV antibiotics and fluids. hospital course: Patient admitted for abdominal pain-workup revealed leukocytosis and CT abdomen reviewed diverticulitis-patient was started on bowel rest, hydration, pain control with IV morphine as well as IV antibiotics ceftriaxone and Flagyl. With above management patient seems to be improved significantly: Tolerating diet, no fever, leukocytosis trending down, blood culture negative at 24 hours . Patient's antibiotics switched to p.o., patient is tolerating diet, patient will go home with p.o. antibiotics. Patient was also does strongly recommended to consider outpatient colonoscopy once acute episode of diverticulitis resolves. Htn: blood pressure uncontrolled-adjusted coreg to 6.25 mg by mouth twice daily and added amlodipine. Above management discussed with the patient in detail and he understand and in agreement with above plan. plan: Please complete the course of antibiotics Ceftin and Flagyl for 6 more days. For High blood pressure- adjusted coreg to 6.25 mg by mouth twice daily and added amlodipine. Patient was also does strongly recommended to consider outpatient colonoscopy once acute episode of diverticulitis resolves, with consider outpatient GI evaluation as per PCP. Time Spent with Patient Time attestation: Total time managing care of this patient today ____ minutes. Discharge coordination time: Greater than 30 minutes Quality: Safe Use of Opioids Does Pt have an Active Cancer Diagnosis on the Problem List?: No Quality: Stroke Does the patient have a stroke diagnosis?: No Physical Exam Vital Signs: Vital Signs: Last Vital Signs Temp 98.0 F 01/20/23 07:20 Pulse 80 01/20/23 07:20 Resp 20 01/20/23 07:20 BP 182/90 H 01/20/23 07:20 Pulse Ox 97 01/20/23 07:20 O2 Del Method Room Air 01/20/23 07:20 BMI result Body Mass Index 28.3 Appearance: Alert.? Oriented X3.? not in distress.? Eyes: Pupils equal, round and reactive to light.? Sclera nonicteric.? ENT: Pharynx normal.? Moist mucous membranes. cvs: rrr, [id number]. res: clear to auscultation ,no rhonchii or wheezing abd: no rebound or guarding ,nt, bs present. ext pulses present , no cyanosis . neuro: axo3 , nonfocal. DS: Data Data Completed and Pending Labs on day of discharge: Preliminary micro results at discharge 01/18/23 12:23 Blood Culture - Preliminary Blood - Venous No growth after 24 hours. 01/18/23 12:03 Blood Culture - Preliminary Blood - Venous No growth after 24 hours. Imaging Chest x-ray: Radiologist's impression: ITS Impressions Chest X-Ray 01/18/23 12:50 IMPRESSION: No evidence for acute disease in the chest. Abdomen/Pelvis CT 01/18/23 12:52 IMPRESSION: Diverticulitis or colitis of the distal left colon. Trace ascites in the pelvis. Small nonobstructing right renal stones. Fleischner guidelines were followed. Discharge Plan Discharge Anticipated Discharge Date/Time: 01/20/23 10:59 Patient Disposition: Home, Self-Care Discharge Diagnosis: diverticulitis Referrals: Damaris Hernandez, ALYCIAC [Nurse Practitioner] - 1 Week Physician,Unknown J [Primary Care Provider] - 1 Week Discharge Medications: New amlodipine 5 mg Tablet 5 mg PO DAILY Qty: 30 0RF Protocol: Hold for SBP< HOLD for SBP < : 90 cefuroxime axetil 500 mg tablet 500 mg PO BID Qty: 12 0RF metronidazole 500 mg tablet 500 mg PO Q12H Qty: 12 0RF Continued atorvastatin 20 mg tablet 20 mg PO DAILY albuterol sulfate [Ventolin HFA] 90 mcg/actuation HFA aerosol inhaler 2 puff inhalation Q4H PRN (Reason: wheezing) Incruse Ellipta 62.5 mcg/actuation blister with device 1 inh INHALATION DAILY Biktarvy 50-200-25 mg tablet 1 tab PO DAILY Changed carvedilol 3.125 mg tablet 6.25 mg PO BID Qty: 120 0RF Discharge Orders: Discharge Order (Routine); Ordered 01/20/23 Ordered By: Dylan Dominguez Diet: Low salt diet Activity on Discharge: As tolerated Stand Alone Forms: Patient Portal Discharge page Care Plan Goals: Patient admitted for abdominal pain-workup revealed leukocytosis and CT abdomen reviewed diverticulitis-patient was started on bowel rest, hydration, pain control with IV morphine as well as IV antibiotics ceftriaxone and Flagyl. With above management patient seems to be improved significantly: Tolerating diet, no fever, leukocytosis trending down, blood culture negative at 24 hours . Patient's antibiotics switched to p.o., patient is tolerating diet, patient will go home with p.o. antibiotics. Patient was also does strongly recommended to consider outpatient colonoscopy once acute episode of diverticulitis resolves. Htn: blood pressure uncontrolled-adjusted coreg to 6.25 mg by mouth twice daily and added amlodipine. Above management discussed with the patient in detail and he understand and in agreement with above plan. Health Concerns: As above . Plan of Treatment: As above. Assessment: As above.
--- NOTE | 2023-01-20 12:52 | PC.NURSE ---
pt A&O, denies pain, vitals within normal limits. IV out, monitor off. starter mechanic, Quin, at bedside. pt verbalize understanding. son to pick pt up.
== END 2023-01-20 13:04 | disposition home or self-care (01) | DRG 244 ==
LOC: HO.ED 14:26 → HO.EDOVER 17:08 → HO.IMC 17:49
PROVIDERS: Admitting Provider Student in an Organized Health Care Education/Training Program; Emergency Provider Emergency Medicine Emergency Medical Services; PCP Nurse Practitioner Family; Visit Provider Internal Medicine
DX: K57.32 Diverticulitis of large intestine without perforation or abscess without bleeding (principal); E78.5 Hyperlipidemia, unspecified; I10 Essential (primary) hypertension; J45.20 Mild intermittent asthma, uncomplicated; Z21 Asymptomatic human immunodeficiency virus [HIV] infection status; Z87.891 Personal history of nicotine dependence; Z79.899 Other long term (current) drug therapy
CPT/HCPCS: 36415; 71046; 74177; 80048; 80076; 81001; 82947; 83690; 85025; 85027; 87040; 93005; 99285; J0696; J1650; J1885; J2270; J2405; J2543; Q9967